=== PATIENT | female | born 1995 | race Two or more races ===

== ENCOUNTER 2018-12-01 19:16 | Emergency (ER) | payer OTHER ==
[~2018-12-01] VITALS: Ht 157.5 cm; Wt 53.5 kg
== END 2018-12-01 23:32 | disposition home or self-care (01) ==
LOC: ER 19:16
DX: R82.998 Other abnormal findings in urine (principal); M79.18 Myalgia, other site

== ENCOUNTER → 2019-01-29 | Emergency (ER) | payer OTHER ==
[~2019-01-29] VITALS: Ht 157.5 cm; Wt 53.5 kg
== END | disposition home or self-care (01) ==
LOC: ER 20:40
DX: K52.9 Noninfective gastroenteritis and colitis, unspecified (principal)

== ENCOUNTER 2020-11-13 17:24 | Emergency (ER) | payer OTHER ==
[~2020-11-13] VITALS: Ht 167.6 cm; Wt 57.6 kg
== END 2020-11-13 21:51 | disposition home or self-care (01) ==
LOC: ER 17:24
DX: K52.9 Noninfective gastroenteritis and colitis, unspecified (principal); Z11.52 Encounter for screening for COVID-19